=== PATIENT | male | born 2005 | race Caucasian/White ===

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

== ENCOUNTER → 2024-08-22 | Outpatient (REF) | payer BC ==
[2024-08-22 19:16] LABS: GC DNA AMPLIFICATION NEGATIVE (NEGATIVE)
[2024-08-24 14:11] LABS: Trichomonas vaginalis (AMP) NOT DETECTED (NEGATIVE)
== END ==
LOC: M LAB REF 16:56
PROVIDERS: ATTEND Student in an Organized Health Care Education/Training Program
DX: R30.0 Dysuria (principal)

== ENCOUNTER → 2025-05-02 | Outpatient (REF) | payer OTHER, BC ==
[2025-05-03 12:40] LABS: Trichomonas vaginalis (AMP) NOT DETECTED (NEGATIVE)
[2025-05-03 13:04] LABS: GC DNA AMPLIFICATION NEGATIVE (NEGATIVE)
== END ==
LOC: M LAB REF 14:36
DX: A64 Unspecified sexually transmitted disease (principal)

== ENCOUNTER → 2025-05-13 | Outpatient (CLI) | payer OTHER, BC | LOC: M WUC 12:36 | PROVIDERS: ATTEND Student in an Organized Health Care Education/Training Program | DX: R06.02 Shortness of breath (principal) ==